=== PATIENT | male | born 2000 | race Hispanic/Latino ===

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

== ENCOUNTER 2020-02-20 03:39 | Emergency (ER) | payer SELFPAY ==
--- OUTSIDE RECORDS SUMMARY | 2020-02-20 03:42 | XMS REPORT | Summary of Care ---
:2000 Author Organization [facility] Address [address] [place] [address] Care Team Providers Name Role Phone Fara Chery MD Primary Care Provider Unavailable Reason for Referral Radiology Services (STAT) Status Reason Specialty Diagnoses / Referred By Referred To Procedures Contact Contact New Request Diagnostic Diagnoses Fever and chills Cough in adult Tachycardia Roxana Goodman, Radiology Procedures Chest 1 View [employer] [address] [place] [address]. [place] [phone] Reason for Visit Reason Comments Fever covid test Auth/Cert Status Reason Specialty Diagnoses / Referred By Referred To Procedures Contact Contact Emergency Medicine Diagnoses FEVER [facility] Emergency Dept [address] [place], [place] [phone] Fax: Encounter Details Date Type Department Care Team Description 02/19/2020 Emergency ADC-Emergency Roxana Goodman , [employer] COVID-19 virus infection (Primary Dx); Department [address] [place] [address]. Fever and chills; [address] [place] [address] Cough in adult; Drive [phone] Tachycardia [place] [phone] Allergies No Known Allergiesdocumented as of this encounter (statuses as of 02/19/2020) Medications Medication Sig Dispensed Refills Start Date End Date Status azithromycin 250 mg Take 1 tablet by 1 Package 0 02/19/2020 Active tabletIndications: mouth daily. Fever and chills, Take 500 mg day Cough in adult, 1, then 250 mg Tachycardia, COVID-19 days 2 to 5. virus infection predniSONE 20 mg Take 2 tablets 10 tablet 0 02/19/2020 020 Active tabletIndications: by mouth every Fever and chills, morning for 5 Cough in adult, days. Tachycardia, COVID-19 virus infection documented as of this encounter (statuses as of 02/19/2020) Active Problems Not on filedocumented as of this encounter (statuses as of 02/19/2020) Social History Tobacco Use Types Packs/Day Years Used Date Never Assessed Sex Assigned at Date Recorded Not on file COVID-19 Exposure Response Date Recorded In the last month, have you been in contact with No / Unsure 02/19/2020 5:26 PM CDT someone who was confirmed or suspected to have Coronavirus / COVID-19? documented as of this encounter Last Filed Vital Signs Vital Sign Reading Time Taken Comments Blood Pressure 138/81 02/19/2020 5:27 PM CDT Pulse 115 02/19/2020 5:27 PM CDT Temperature 38.2 C (100.8 F) 02/19/2020 7:09 PM CDT Respiratory Rate 18 02/19/2020 5:27 PM CDT Oxygen Saturation 98% 02/19/2020 5:27 PM CDT Inhaled Oxygen Concentration - - Weight 103 kg (227 lb) 02/19/2020 5:27 PM CDT Height - - Body Mass Index - - documented in this encounter Discharge Instructions Roxana Feliciano FNP - 02/19/2020Take medication as directed Take over the counter Tylenol for fever Drink plenty fluids Rest SELF QUARANTINE UNTIL SYMPTOMS RESOLVE Follow up with your PCP in 3 days Return for any shortness of breath, chest pain,dizziness or any concerns AttachmentsThe following attachments cannot be sent through Care Everywhere. Coronavirus Disease 2019 (COVID-19) (German)Febrile Illness, Uncertain Cause (Adult) (German)documented in this encounter ED Notes Monika Aragon RN - 02/19/2020 5:29 PM CDTCC: Headache, cough, fever x 2 days PMHx: none PSH:none MEDS:none LMP: na Tetanus: utd Awake, alert, oriented, resp reg unlabored, skin hot & dry, color appropriate for race, moves all ext without difficulty, amb with out assist Appears in no distress documented in this encounter Miscellaneous Notes ED Nurse Note - Jakob Moody RN - 02/19/2020 7:06 PM CDTPt given printed and verbal discharge instructions regarding COVID, encouraged hydration, Prescriptions provided Pt verbalized understanding of instructions, pt awake alert oriented, resp reg unlabored, skin w/d, color appropriate for race, moves all ext well,pt encouraged to follow up with pcp Advised to seek medical attention for new/prolonged/worsening of symptoms, Symptoms improved No adverse reaction to meds given in ER noted upon discharge PIV d'cd, dressing to site, catheter in tact. Awake, alert oriented, resp reg unlabored, skin w/d, pt leaving amb with steady gait, in no apparent distress, D Nurse Note - Monika Aragon RN - 02/19/2020 5:32 PM CDTWalk test done patient maintained oxygen saturations of 97% on room air for 1 minute walk test. Tolerated well. documented in this encounter Plan of Treatment Name Type Priority Associated Diagnoses Date/Ti me Chest 1 View IMAGING STAT Fever and chills 02/19/2020 5:53 PM CDT Cough in adult Tachycardia Health Maintenance Due Date Last Done Comments VARICELLA VACCINES (1 of 2 - 2-dose 12/29/2000 childhood series) MENINGOCOCCAL B VACCINES (1 of 2 - 12/29/2009 Risk Bexsero 2-dose series) HPV VACCINES (1 - Male 2-dose 12/29/2010 series) Depression Screening 2011 WELL CARE VISIT: 12-21 YEARS 2011 (yearly) DTaP,Tdap,and Td Vaccines (1 - 12/29/2018 Tdap) INFLUENZA VACCINE (#1) 2020 MENINGOCOCCAL VACCINE Aged Out No longer eligible based on patient's age to complete this topic PNEUMOCOCCAL 0-64 YEARS COMBINED Aged Out No longer eligible based on SERIES patient's age to complete this topic documented as of this encounter Procedures Procedure Name Priority Date/Time Associated Diagnosis Comme nts XR CHEST 1 VW STAT 02/19/2020 5:53 PM CDT Fever an d chills Cough in adult Tachycardia Procedure Note - Uttariq, Tomera nt Results Inft User - 02/19/2020 6:46 PM CDT EXAM: XR CHEST 1 VW HISTORY: 19 years-old; Male; fever COMPARISON: None FINDINGS: Lungs/Pleura: The lungs are clear with no focal consolidation. There is no pleural effusion or pneumoth orax. Heart/Mediastinum: The cardi omediastinal silhouette is normal. No acute osseous structure a bnormality. IMPRESSION No acute cardiopulmonary abn ormality Preliminary Report Dictated by Resident: Holly Burgos COVID-19 (ID NOW STAT 02/19/2020 5:52 Fever and chil ls Results for this RAPID TESTING) PM CDT Cough in adult procedure are in Tachycardia the results section. CBC WITH DIFF STAT 02/19/2020 5:52 Fever and chill s Results for this PM CDT Cough in adult procedure are in Tachycardia the results section. BASIC METABOLIC STAT 02/19/2020 5:52 Fever and chill s Results for this PANEL (NA, K, CL, PM CDT Cough in adult procedure are in CO2, GLUCOSE, Tachycardia the results BUN, CREATININE, section. CA) HEPATIC FUNCTION STAT 02/19/2020 5:52 Fever and chil ls Results for this PANEL (52938) PM CDT Cough in adult procedure are in (ALB,T.PRO,BILI Tachycardia the results T,BU/BC,ALT,AST,A section. LK PHOS) NOTICE OF PRIVACY Routine 02/19/2020 5:15 PRACTICES PM CDT documented in this encounter Results COVID-19 (ID NOW RAPID TESTING) (02/19/2020 5:52 PM CDT) SARS-CoV-2 Rapid ID Positive (A) Not Detected [facility] Specimen Swab - NASOPHARYNGEAL SWAB Narrative Performed At ID NOW COVID-19 Assay is an isothermal nucleic [facility] acid amplification test intended for the qualitative detection of nucleic acid from SARS-CoV-2 viral RNA in nasopharyngeal ([employer]) specimens. It is used under Emergency Use Authorization (EUA) by FDA. The limit of detection (LOD) of the assay is 125 Genome Equivalents/mL. A positive result is indicative of the presence of SARS-CoV-2 RNA. Clinical correlation with patient history and other diagnostic information is necessary to determine patient infection status. A negative (Not Detected) result does not preclude SARS-CoV-2 infection. In patients with clinical symptoms and other tests that are consistent with SARS-CoV-2 infection, negative results should be treated as presumptive negative and a new specimen should be tested with alternative PCR molecular test. Invalid: Please collect a new specimen for repeat patient testing if clinically indicated. Performing Organization Address [facility] Phone Number [facility] CLIA: [id number] [place] [address] [place] [address] Hepatic Function Panel (ALB, T.PRO, BILI T, BU/BC, ALT, AST, ALK PHOS) (02/19/2020 5:52 PM CDT) [facility] TOTAL BILI 0.6 0.1 - 1.1 mg/dL [facility] BILI UNCON 0.7 0.1 - 1.1 mg/dL [facility] BILI CONJ 0.0 0.0 - 0.3 mg/dL [facility] T PROTEIN 7.6 6.3 - 8.2 g/dL [facility] ALBUMIN 4.5 3.5 - 5.0 g/dL [facility] ALK PHOS 61 34 - 122 U/L [facility] ALTv 351 (H) 5 - 50 U/L [facility] AST(SGOT) 1,206 (H) 13 - 40 U/L [facility] Specimen Blood - VENOUS Performing Organization Address [facility] Phone Number [facility] CLIA: [id number] [place] [address] [place] [address] Basic Metabolic Panel (NA, K, CL, CO2, GLUCOSE, BUN, CREATININE, CA) (02/19/2020 5:52 PM CDT) [facility] NA 137 135 - 145 mmol/L [facility] K 3.8 3.5 - 5.0 mmol/L [facility] CL 99 98 - 108 mmol/L [facility] CO2 TOTAL 28 23 - 31 mmol/L [facility] AGAP 10 2 - 16 [facility] BUN 11 7 - 23 mg/dL [facility] GLUCOSE 109 70 - 110 mg/dL [facility] CREATININE 0.80 0.60 - 1.25 [facility] mg/dL [facility] CALCIUM 8.7 8.6 - 10.6 mg/dL [facility] eGFR Calculation 123.2 mL/min/1.73m2 [facility] (Non-) [facility] Y eGFR Calculation 149.4 mL/min/1.73m2 [facility] () [facility] Specimen Blood - VENOUS Narrative Performed At Association of Glomerular Filtration Rate (GFR) [facility] and Staging of Kidney Disease* + + +- + | GFR (mL/min/1.73 m2) | With Kidney Damage | Without Kidney Damage + + +- + | >90 | Stage one | Normal + + +- + | 60-89 | Stage two | Decreased GFR + + +- + | 30-59 | Stage three | Stage three + + +- + | 15-29 | Stage four | Stage four + + +- + | <15 (or dialysis) | Stage five | Stage five + + +- + *Each stage assumes the associated GFR level has been in effect for at least three months. Stages 1 to 5, with or without kidney disease, indicate chronic kidney disease. Notes: Determination of stages one and two (with eGFR >59mL/min/1.73 m2) requires estimation of kidney damage for at least three months as defined by structural or functional abnormalities of the kidney, manifested by either: Pathological abnormalities or Markers of kidney damage (including abnormalities in the composition of the blood or urine or abnormalities in imaging tests). Performing Organization Address City/State/Zipcode Phone Number [facility] CLIA: [id number] [place] [address] CBC with Differential (02/19/2020 5:52 PM CDT) [facility] WBC 3.98 (L) 4.20 - 10.70 [facility] 10*3/L [facility] RBC 5.27 4.26 - 5.52 [facility] 10*6/L [facility] HGB 15.5 12.2 - 16.4 [facility] g/dL [facility] HCT 45.5 38.4 - 49.3 % [facility] MCV 86.3 81.7 - 95.6 fL [facility] MCH 29.4 26.1 - 32.7 pg [facility] MCHC 34.1 31.2 - 35.0 [facility] g/dL [facility] RDW-SD 38.3 (L) 38.5 - 51.6 fL [facility] RDW-CV 12.0 (L) 12.1 - 15.4 % [facility] PLT 172 150 - 328 [facility] 10*3/L [facility] MPV 10.5 9.8 - 13.0 fL [facility] NRBC/100 WBC 0.0 0.0 - 10.0 /100 [facility] WBCs [facility] NRBC x10^3 <0.01 10*3/L [facility] GRAN MAT (NEUT) % 68.7 % [facility] IMM GRAN % 0.30 % [facility] LYMPH % 21.1 % [facility] MONO % 9.3 % [facility] EOS % 0.3 % [facility] BASO % 0.3 % [facility] GRAN MAT x10^3(ANC) 2.74 1.99 - 6.95 [facility] 10*3/uL [facility] IMM GRAN x10^3 <0.03 0.00 - 0.06 [facility] 10*3/uL [facility] LYMPH x10^3 0.84 (L) 1.09 - 3.23 [facility] 10*3/uL [facility] MONO x10^3 0.37 0.36 - 1.02 [facility] 10*3/uL [facility] EOS x10^3 <0.03 (L) 0.06 - 0.53 [facility] 10*3/uL [facility] BASO x10^3 <0.03 0.01 - 0.[address]uL [facility] Specimen Blood - VENOUS Performing Organization Address City/State/Zipcode Phone Number [facility] CLIA: [id number] [place] [address] documented in this encounter Visit Diagnoses Diagnosis COVID-19 virus infection - Primary Fever and chills Fever, unspecified Cough in adult Tachycardia Tachycardia, unspecified documented in this encounter Administered Medications Medication Order MAR Action Action Date Dose Rate Site acetaminophen (TYLENOL) tablet Given 02/19/2020 5:52 PM CDT 1,0 00 mg 1,000 mg 1,000 mg, Oral, ONCE, 1 dose, Sat02/19/20 at 1845, ABISAI ibuprofen (IBU) tablet 800 mg Given 02/19/2020 5:52 PM CDT 800 mg 800 mg, Oral, ONCE, 1 dose, Sat02/19/20 at 1845, ABISAI NaCl 0.9% (NS) bolus infusion New Bag 02/19/2020 5:52 PM CDT 1,000 mL 999 mL/hr 1,000 mL at 999 mL/hr, 1,000 mL, IV Infusion, ONCE, 1 dose, Sat02/19/20 at 1745, ABISAI documented in this encounter Additional Health Concerns Infection Onset Date Last Indicated Resolved Time COVID-19 Rule Out 02/19/2020 02/19/2020 02/19/2020 6: 19 PM CDT COVID-19 Confirmed 02/19/2020 02/19/2020 documented as of this encounter"
--- NOTE | 2020-02-20 04:48 | ER ---
Nurse's Notes [facility] Name: Vic Biggs III Age: 19 yrs Sex: Male : 2000 Arrival Date: 02/20/2020 Time: 03:43 Bed 20 Private MD: Diagnosis: Coronavirus infection, unspecified Presentation: 02/19 03:58 Chief complaint: Patient states: PATIENT RUNNING FEVER BEFORE GOING TO BED. TOOK FEVER rv MEDICATIONS. PATIENT WOKE UP AT 3AM, SOAKING WET FROM SWEAT. MOTHER CHECK THE TEMPERATURE AND REGISTERED, 93F. PARENT IS WORRIED THAT IT IS HYPOTHERMIA. PATIENT DENIES ANY SOB, CHEST PAIN, OR FEVER. Coronavirus screen: fever, Client reports previous positive COVID test result. Date of collection: February 19, 2020 VERBALIZED BY THE PATIENT. Ebola Screen: No symptoms or risks identified at this time. Initial Sepsis Screen: Does the patient meet any 2 criteria? No. Patient's initial sepsis screen is negative. Does the patient have a suspected source of infection? No. Patient's initial sepsis screen is negative. Risk Assessment: Do you want to hurt yourself or someone else? Patient reports no desire to harm self or others. Onset of symptoms was February 20, 2020 at 03:00. 03:58 Method Of Arrival: Ambulatory rv 03:58 Acuity: PATRICIO 5 rv Triage Assessment: 04:02 General: Appears comfortable, Behavior is calm, cooperative. Pain: Denies pain. EENT: rv No signs and/or symptoms were reported regarding the EENT system. Neuro: Level of Consciousness is awake, alert, obeys commands, Oriented to person, place, time, situation. Cardiovascular: Patient's skin is warm and dry. Respiratory: Airway is patent Respiratory effort is even, unlabored, Breath sounds are clear bilaterally. Derm: Skin is intact. Historical: - Allergies: 04:02 No Known Allergies; rv - Home Meds: 04:02 azithromycin 250 mg Oral tab [Active]; prednisone 20 mg Oral tab 2 tabs once daily rv [Active]; - PMHx: 04:02 None; rv - PSHx: 04:02 None; rv - Immunization history:: Adult Immunizations up to date. - Social history:: Smoking status: Patient denies any tobacco usage or history of. Screenin:04 Abuse screen: Denies threats or abuse. Denies injuries from another. Nutritional rv screening: No deficits noted. Tuberculosis screening: No symptoms or risk factors identified. Fall Risk None identified. Assessment: 04:50 Reassessment: DR HENRIQUEZ TALKED TO THE PATIENT. rv Vital Signs: 03:58 BP 138 / 88; Pulse 70; Resp 17; Temp 98.2; Pulse Ox 96% ; Weight 102.97 kg; Height 5 rv ft. 11 in. (180.34 cm); Pain 0/10; 03:58 Body Mass Index 31.66 (102.97 kg, 180.34 cm) rv ED Course: 03:43 Patient arrived in ED. 03:57 Wilman Henriquez MD is Attending Physician. [facility] 03:58 Torin Lujan, RN is Primary Nurse. rv 04:01 Triage completed. rv 04:02 Arm band placed on Patient placed in the treatment room, on a stretcher, Patient rv notified of wait time. 04:04 Patient has correct armband on for positive identification. Pulse ox on. NIBP on. rv 04:50 No provider procedures requiring assistance completed. Patient did not have IV access rv during this emergency room visit. Administered Medications: No medications were administered Outcome: 04:47 Discharge ordered by . [facility] 04:51 Discharged to home ambulatory. rv 04:51 Condition: good 04:51 Discharge instructions given to patient, Instructed on discharge instructions, follow up and referral plans. Demonstrated understanding of instructions, follow-up care. 04:51 Patient left the ED. rv Signatures: Savannah Fermin Ronaldo, BRENNON RN rv Wilman Henriquez MD MD [facility]
--- NOTE | 2020-02-20 04:48 | EDPHYS ---
Physician Documentation [facility] Name: Vic Biggs III Age: 19 yrs Sex: Male : 2000 Arrival Date: 02/20/2020 Time: 03:43 Bed 20 Private MD: ED Physician Wilman Henriquez HPI: 02/19 04:37 This 19 yrs old Male presents to ER via Ambulatory with complaints of +COVID mh7 19,TEMP DROPING SWEATING. 04:38 The patient reports fever, Sweating and low temperature. Onset: The symptoms/episode mh7 began/occurred today. Modifying factors: COVID 19 positive. Associated signs and symptoms: Pertinent negatives: abdominal pain, altered mental status, arthralgias, backache, chest pain, chills, cough, diarrhea, pulling at ears, earache, headache, hemoptysis, myalgias, nausea, night sweats, runny nose, sinus congestion, sinus drainage, skin rash, shortness of breath, sore throat, swelling, vomiting. Severity of symptoms: At their worst the symptoms were mild today, in the emergency department the symptoms have resolved and did so just prior to arrival. Patient states that he had been having intermittent fever for the past few days then tested COVID positive yesterday. He has been taking Tylenol and Ibuprofen for fever. He woke up sweaty this morning and his mother took his temperature and told him it was 93 degrees. She made him come to the ER. he denies any complaints.. Historical: - Allergies: 04:02 No Known Allergies; rv - Home Meds: 04:02 azithromycin 250 mg Oral tab [Active]; prednisone 20 mg Oral tab 2 tabs once daily rv [Active]; - PMHx: 04:02 None; rv - PSHx: 04:02 None; rv - Immunization history:: Adult Immunizations up to date. - Social history:: Smoking status: Patient denies any tobacco usage or history of. ROS: 04:38 Eyes: Negative for injury, pain, redness, and discharge, ENT: Negative for injury, mh7 pain, and discharge, Neck: Negative for injury, pain, and swelling, Cardiovascular: Negative for chest pain, palpitations, and edema, Respiratory: Negative for shortness of breath, cough, wheezing, and pleuritic chest pain, Abdomen/GI: Negative for abdominal pain, nausea, vomiting, diarrhea, and constipation, Back: Negative for injury and pain, : Negative for injury, bleeding, discharge, and swelling, MS/Extremity: Negative for injury and deformity, Skin: Negative for injury, rash, and discoloration, Neuro: Negative for headache, weakness, numbness, tingling, and seizure, Psych: Negative for depression, anxiety, suicide ideation, homicidal ideation, and hallucinations, Allergy/Immunology: Negative for hives, rash, and allergies, Endocrine: Negative for neck swelling, polydipsia, polyuria, polyphagia, and marked weight changes, Hematologic/Lymphatic: Negative for swollen nodes, abnormal bleeding, and unusual bruising. Exam: 04:38 Constitutional: This is a well developed, well nourished patient who is awake, alert, mh7 and in no acute distress. Head/Face: Normocephalic, atraumatic. Eyes: Pupils equal round and reactive to light, extra-ocular motions intact. Lids and lashes normal. Conjunctiva and sclera are non-icteric and not injected. Cornea within normal limits. Periorbital areas with no swelling, redness, or edema. Neck: Trachea midline, no thyromegaly or masses palpated, and no cervical lymphadenopathy. Supple, full range of motion without nuchal rigidity, or vertebral point tenderness. No Meningismus. Chest/axilla: Normal chest wall appearance and motion. Nontender with no deformity. No lesions are appreciated. Cardiovascular: Regular rate and rhythm with a normal S1 and S2. No gallops, murmurs, or rubs. Normal PMI, no JVD. No pulse deficits. Respiratory: Lungs have equal breath sounds bilaterally, clear to auscultation and percussion. No rales, rhonchi or wheezes noted. No increased work of breathing, no retractions or nasal flaring. Abdomen/GI: Soft, non-tender, with normal bowel sounds. No distension or tympany. No guarding or rebound. No evidence of tenderness throughout. Back: No spinal tenderness. No costovertebral tenderness. Full range of motion. Skin: Warm, dry with normal turgor. Normal color with no rashes, no lesions, and no evidence of cellulitis. MS/ Extremity: Pulses equal, no cyanosis. Neurovascular intact. Full, normal range of motion. Neuro: Awake and alert, GCS 15, oriented to person, place, time, and situation. Cranial nerves II-XII grossly intact. Motor strength 5/5 in all extremities. Sensory grossly intact. Cerebellar exam normal. Normal gait. Psych: Awake, alert, with orientation to person, place and time. Behavior, mood, and affect are within normal limits. Vital Signs: 03:58 BP 138 / 88; Pulse 70; Resp 17; Temp 98.2; Pulse Ox 96% ; Weight 102.97 kg; Height 5 rv ft. 11 in. (180.34 cm); Pain 0/10; 03:58 Body Mass Index 31.66 (102.97 kg, 180.34 cm) rv [facility]: 04:36 Patient medically screened. [facility] 04:38 Differential diagnosis: viral Infection, URI, Fever, Dehydration, Hypothermia. Data [facility] reviewed: vital signs, nurses notes. Data interpreted: Pulse oximetry: on room air is 96 %. Interpretation: normal. Counseling: I had a detailed discussion with the patient and/or guardian regarding: the historical points, exam findings, and any diagnostic results supporting the discharge/admit diagnosis, the presence of at least one elevated blood pressure reading (>120/80) during this emergency department visit, the need for outpatient follow up, to return to the emergency department if symptoms worsen or persist or if there are any questions or concerns that arise at home. Response to treatment: the patient's symptoms have resolved after treatment, the patient's blood pressure is in an acceptable range, mental status has returned to baseline, the patient no longer shows bradycardia, the patient is not short of breath, the patient is not tachycardic, the patient's pain is gone, the patient's temperature has normalized. Refusal of service: The patient/guardian displays adequate decision making capability and despite a detailed discussion of alternatives, benefits, risks, and consequences refuses: all lab tests, all X-rays. Administered Medications: No medications were administered Disposition: 07:28 Co-signature as Attending Physician, Wilman Henriquez MD. mh7 Disposition: 02/20/20 04:47 Discharged to Home. Impression: Coronavirus infection, unspecified. - Condition is Stable. - Discharge Instructions: COVID-19. - Medication Reconciliation Form, Thank You Letter, Antibiotic Education, Prescription Opioid Use form. - Follow up: Private Physician; When: 1 - 2 days; Reason: Worsening of condition, Recheck today's complaints, Continuance of care, Re-evaluation by your physician. - Problem is an ongoing problem. - Symptoms have improved. Signatures: Torin Lujan RN RN rv Wilman Henriquez MD MD mh7 Corrections: (The following items were deleted from the chart) 04:51 04:47 02/20/2020 04:47 Discharged to Home. Impression: Coronavirus infection, rv unspecified. Condition is Stable. Forms are Medication Reconciliation Form, Thank You Letter, Antibiotic Education, Prescription Opioid Use. Follow up: Private Physician; When: 1 - 2 days; Reason: Worsening of condition, Recheck today's complaints, Continuance of care, Re-evaluation by your physician. Problem is an ongoing problem. Symptoms have improved. mh7
== END 2020-02-20 04:51 | disposition home or self-care (01) ==
LOC: ER 03:39
DX: U07.1 COVID-19 (principal)
CPT/HCPCS: 99283